=== PATIENT | male | born 1995 | race Caucasian/White ===

== ENCOUNTER 2017-11-15 11:11 | Observation (INO) ==
[2017-11-15] MEDS ORDERED: Lidocaine PF 1% Inj 30 ML Vial INFILTRATN ONE (11:41)
[2017-11-15] MEDS ORDERED: Lidocaine 1% Inj 50 ML Vial ONE (11:46)
--- NOTE | 2017-11-15 11:55 | ED ---
HPI General Chief Complaint: Dizziness Stated Complaint: Dizzy/elevated bp Source: patient Mode of arrival: ambulatory Limitations: no limitations History of Present Illness HPI Narrative: 22-year-old male complains of dizziness and elevated blood pressure. Patient started having intermittent dizziness for the past 2 weeks. Patient states that dizziness is worse with head movement. Patient denies any headache. Patient denies any visual change. Patient denies any chest pain or shortness of breath. Patient denies abdominal pain. Patient denies any nausea vomiting diarrhea. Patient denies any alcohol or drug abuse. Patient was seen in emergency room in [place] yesterday. Patient was given prescription for metoprolol 25 mg. Patient was given the first dose yesterday. Patient has not taking metoprolol at home since then. Patient states that his systolic blood pressure was running in the 140s 150s at home. Patient states that he had blood test done in the emergency room yesterday and was normal. Patient states that he had a near syncopal episode this morning from the dizziness. Patient called EMS. Patient was advised to go to ED for evaluation. Patient also complained of pain swelling redness on the left hand for the past 4 days. Patient states that he has a small piece of wood splinter embedded in the left hand 4 days ago. Patient states he is up-to-date with TD booster. Patient was seen in emergency room 2 weeks ago and again last night for atypical chest pain. Cardiac workup was normal. complaint: dizziness and near syncope Onset (ago): day(s) Timing: sudden onset and intermittent Description: sense of movement, lightheadedness, off-balance and near-syncope History of similar episodes: No History of trauma: No Severity: moderate Relieving factors: nothing Exacerbating factors: movement Associated symptoms: denies other symptoms Related Data Home Medications Medication Instructions Recorded Confirmed metoprolol tartrate 25 mg PO BID 11/15/17 11/15/17 Allergies Allergy/AdvReac Type Severity Reaction Status Date / Time No Known Allergies Allergy Verified 11/15/17 11:19 Review of Systems ROS: all other systems reviewed are negative [facility] Medical History Medical History Palpitations (Acute) Surgical History Surgical History No history of previous surgery (Acute) Social History Social History Substance History: Past History Second Hand Smoke Exposure: No Smoking Status: Heavy tobacco smoker Tobacco Type: Cigarettes How Often Do You Have a Drink Containing Alcohol: Monthly or less Recent Travel in [facility] within the Last 8 Weeks: No Recent Out of Country Travel within the Last 8 Weeks: No Substance Abuse Detail Marijuana: Substance Use Status: Early Remission Route Used Substance Abuse: Inhalation Last Used: 3 WEEKS Reason for Use: Get High Immunization History Tetanus Immunization: <5 Years Hx Influenza Vaccine This Season: No Exam Narrative Exam Narrative: GENERAL: Well-nourished, well-developed patient. SKIN: Focused skin assessment warm/dry. HEAD: Normocephalic. EYES: No scleral icterus. No injection or drainage. NECK: Supple, trachea midline. No JVD or lymphadenopathy. CARDIOVASCULAR: Regular rate and rhythm without murmurs, gallops, or rubs. RESPIRATORY: Breath sounds equal bilaterally. No accessory muscle use. GASTROINTESTINAL: Abdomen soft, non-tender, nondistended. MUSCULOSKELETAL: Patient has an area of soft tissue swelling tenderness with mild redness and hypothenar area medial aspect of the left hand. Small puncture wound noted. No discharge noted. No induration. BACK: Nontender without obvious deformity. No CVA tenderness. Neurologic exam: Patient is awake alert oriented x3. No obvious focal neurological deficit. Procedures Foreign Body Removal Foreign Body Removal Site: right and hand Description of Foreign Body: other (small incision made to right volar hand hypothenar eminence to attempt removal of splinter - none seen.) Sedation/Analgesia: other (lidocaine 1) Technique: incision made to facilitate removal Complications: none Course Initial Documented Vital Signs Temperature 97.4 F L 11/15/17 11:15 Pulse Rate 67 11/15/17 11:15 Respiratory Rate 16 11/15/17 11:15 Blood Pressure 131/78 11/15/17 11:15 Pulse Oximetry 100 11/15/17 11:15 Last Documented Vital Signs Temperature 97.4 F L 11/15/17 11:15 Pulse Rate 78 11/15/17 11:35 Respiratory Rate 16 11/15/17 11:35 Blood Pressure 132/72 11/15/17 11:35 Pulse Oximetry 99 11/15/17 11:35 Medical Decision Making MDM Narrative Medical decision making narrative: 22-year-old male complains of dizziness with head movement and pain and swelling of the left hand after a piece of wood splinter embedded in the left hand. Meclizine 25 mg p.o. given. Vancomycin 1 g IV given. The wound on the left hand was explored and irrigated. Dressing applied. 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 Advised observation and mechanical system technician. Medical Screen Exam Complete: Yes Emergency Medical Condition: Yes Differential Diagnosis Differential Diagnosis: Differential diagnosis including acute vertigo, electrolyte abnormality, dehydration, TIA, CVA, left hand cellulitis, abscess, retained foreign body. Lab Data Lab results reviewed: Yes I reviewed the patient's lab results. Result diagrams: 11/15/17 12:30 11/15/17 12:30 Lab Results 11/15/17 11/15/17 11/15/17 Range/Units 12:15 12:30 12:30 CBC w Diff Auto diff final WBC 7.7 (4.0-11.0) th/mm3 RBC 5.22 (4.50-5.90) mil/mm3 Hgb 16.4 (13.0-17.0) gm/dL Hct 48.7 (39.0-51.0) % MCV 93.3 (80.0-100.0) fL MCH 31.5 (27.0-34.0) pg MCHC 33.7 (32.0-36.0) % RDW 11.9 (11.6-17.2) % Plt Count 208 (150-450) th/mm3 MPV 7.9 (7.0-11.0) fL Neut % (Auto) 60.9 (16.0-70.0) % Lymph % (Auto) 24.0 (9.0-44.0) % [place] % (Auto) 8.1 H (0.0-8.0) % Eos % (Auto) 6.3 H (0.0-4.0) % Baso % (Auto) 0.7 (0.0-2.0) % Neut # (Auto) 4.7 (1.8-7.7) th/mm3 Lymph # (Auto) 1.8 (1.0-4.8) th/mm3 [place] # (Auto) 0.6 (0.0-0.9) th/mm3 Eos # (Auto) 0.5 H (0.0-0.4) th/mm3 Baso # (Auto) 0.1 (0.0-0.2) th/mm3 WBC Differential . Differential Comment . PT 10.2 (9.8-11.6) sec INR 1.0 Ratio Sodium (136-145) meq/L Potassium (3.5-5.1) meq/L Chloride (98-107) meq/L Carbon Dioxide (21.0-32.0) meq/L Anion Gap (5-15) meq/L BUN (7-18) mg/dL Creatinine (0.60-1.30) mg/dL Estimated GFR (>89) mL/min Random Glucose (74-106) mg/dL Calcium (8.5-10.1) mg/dL Total Bilirubin (0.2-1.0) mg/dL AST (15-37) U/L ALT (12-78) U/L Alkaline Phosphatase (45-117) U/L Troponin I (0.02-0.05) ng/mL Total Protein (6.4-8.2) g/dL Albumin (3.4-5.0) g/dL Urine Opiates Screen Neg (Neg) Ur Barbiturates Screen Neg (Neg) Ur Amphetamines Screen Pos H (Neg) U Benzodiazepines Scrn Neg (Neg) Urine Cocaine Screen Neg (Neg) U Cannabinoids Screen Neg (Neg) 11/15/17 Range/Units 12:30 CBC w Diff WBC (4.0-11.0) th/mm3 RBC (4.50-5.90) mil/mm3 Hgb (13.0-17.0) gm/dL Hct (39.0-51.0) % MCV (80.0-100.0) fL MCH (27.0-34.0) pg MCHC (32.0-36.0) % RDW (11.6-17.2) % Plt Count (150-450) th/mm3 MPV (7.0-11.0) fL Neut % (Auto) (16.0-70.0) % Lymph % (Auto) (9.0-44.0) % [place] % (Auto) (0.0-8.0) % Eos % (Auto) (0.0-4.0) % Baso % (Auto) (0.0-2.0) % Neut # (Auto) (1.8-7.7) th/mm3 Lymph # (Auto) (1.0-4.8) th/mm3 [place] # (Auto) (0.0-0.9) th/mm3 Eos # (Auto) (0.0-0.4) th/mm3 Baso # (Auto) (0.0-0.2) th/mm3 WBC Differential Differential Comment PT (9.8-11.6) sec INR Ratio Sodium 140 (136-145) meq/L Potassium 4.6 (3.5-5.1) meq/L Chloride 107 (98-107) meq/L Carbon Dioxide 26.7 (21.0-32.0) meq/L Anion Gap 6 (5-15) meq/L BUN 10 (7-18) mg/dL Creatinine 1.00 (0.60-1.30) mg/dL Estimated GFR Greater than 89 (>89) mL/min Random Glucose 87 (74-106) mg/dL Calcium 9.4 (8.5-10.1) mg/dL Total Bilirubin 1.1 H (0.2-1.0) mg/dL AST 20 (15-37) U/L ALT 25 (12-78) U/L Alkaline Phosphatase 72 (45-117) U/L Troponin I Less than 0.02 L (0.02-0.05) ng/mL Total Protein 7.1 (6.4-8.2) g/dL Albumin 4.3 (3.4-5.0) g/dL Urine Opiates Screen (Neg) Ur Barbiturates Screen (Neg) Ur Amphetamines Screen (Neg) U Benzodiazepines Scrn (Neg) Urine Cocaine Screen (Neg) U Cannabinoids Screen (Neg) Imaging Data Attestation: I personally reviewed and interpreted this imaging study as follows : Radiologist's impression: Head CT 11/15/17 11:43 CONCLUSION: 1. Negative CT Head non contrast. . Chest X-Ray 11/15/17 12:07 CONCLUSION: Negative examination. Discharge Plan Discharge Disposition Patient Disposition: 30 Still Patient Discharge Details Diagnosis: Symptomatic bradycardia, Cellulitis of hand, left Physicians Team ED Provider: Lenin Reddy Primary Care Provider: UNKNOWN, Rxs /Orders / Referrals /Forms Prescriptions: No Action metoprolol tartrate 25 mg Tablet 25 mg PO BID RF: 0 Discharge Interventions Interventions: Vital Signs Last Done: 11/15/17 11:35 Status ED Status: With Nurse
--- NOTE | 2017-11-15 12:18 | CT ---
EXAM DATE: 11/15/2017 12:16 PM EDT AGE/SEX: 22 years / Male INDICATIONS: Dizziness. CLINICAL DATA: This is the patient's initial encounter. Patient reports that signs and symptoms have been present for 1 day and indicates a pain score of 0/10. MEDICAL/SURGICAL HISTORY: None. None. RADIATION DOSE: 55.27 CTDI (mGy) COMPARISON: No prior exams available for comparison. TECHNIQUE: CT of the head without contrast. Using automated exposure control and adjustment of the mA and/or kV according to patient size, radiation dose was kept as low as reasonably achievable to ob tain optimal diagnostic quality images. DICOM format image data is available electronically for revi ew and comparison. FINDINGS: Cerebrum: The ventricles are normal for age. No evidence of midline shift, mass lesion, hemorrhage or acute infarction. No extraaxial fluid collections are seen. Posterior Fossa: The cerebellum and brainstem are intact. The 4th ventricle is midline. The cerebe llopontine angle is unremarkable. Extracranial: The visualized portion of the orbits is intact. Skull: The calvaria is intact. No evidence of skull fracture. CONCLUSION: 1. Negative CT Head non contrast. . Electronically signed by: Leonard Li MD 11/15/2017 12:17 PM EDT
[2017-11-15] MEDS: Sod Chloride 0.9% Inj 1,000 ML IV.CONT SCH ×2 (12:37→22:15)
[2017-11-15 12:46] LABS: Baso # (Auto) 0.1 th/mm3 (0.0-0.2); Baso % (Auto) 0.7 % (0.0-2.0); Eos # (Auto) 0.5 th/mm3 (0.0-0.4); Eos % (Auto) 6.3 % (0.0-4.0); Hematocrit 48.7 % (39.0-51.0); Hemoglobin 16.4 gm/dL (13.0-17.0); Lymph # (Auto) 1.8 th/mm3 (1.0-4.8); Mean Corpuscular HGB Conc 33.7 % (32.0-36.0); Mean Corpuscular Hemoglobin 31.5 pg (27.0-34.0); Mean Corpuscular Volume 93.3 fL (80.0-100.0); Mean Platelet Volume 7.9 fL (7.0-11.0); Mono # (Auto) 0.6 th/mm3 (0.0-0.9); Mono % (Auto) 8.1 % (0.0-8.0); Neut # (Auto) 4.7 th/mm3 (1.8-7.7); Neut % (Auto) 60.9 % (16.0-70.0); Platelet Count 208 th/mm3 (150-450); Red Blood Count 5.22 mil/mm3 (4.50-5.90); Red Cell Distribution Width 11.9 % (11.6-17.2); White Blood Count 7.7 th/mm3 (4.0-11.0)
--- NOTE | 2017-11-15 12:47 | XR ---
EXAM DATE: 11/15/2017 12:36 PM EDT AGE/SEX: 22 years / Male INDICATIONS: Dizzy, palpitations, chest pains CLINICAL DATA: This is the patient's initial encounter. Patient reports that signs and symptoms have been present for 3 weeks and indicates a pain score of 5/10. MEDICAL/SURGICAL HISTORY: None. None. COMPARISON: HPO, CHEST 1V SINGLE AP, 11/14/2017. . FINDINGS: A single AP view of the chest demonstrates the lungs to be symmetrically aerated without evidence of mass, infiltrate or effusion. The cardiomediastinal contours are unremarkable. Osseous structures a re intact. CONCLUSION: Negative examination. Electronically signed by: Leonard Li MD 11/15/2017 12:46 PM EDT
[2017-11-15 12:58] LABS: Chloride 107 meq/L (98-107); Potassium 4.6 meq/L (3.5-5.1); Sodium 140 meq/L (136-145)
[2017-11-15 13:01] LABS: Albumin 4.3 g/dL (3.4-5.0); Anion Gap 6 meq/L (5-15); Calcium 9.4 mg/dL (8.5-10.1); Carbon Dioxide 26.7 meq/L (21.0-32.0); Glucose,Random 87 mg/dL (74-106)
[2017-11-15 13:02] LABS: Blood Urea Nitrogen 10 mg/dL (7-18)
[2017-11-15 13:02] LABS: Amphetamine Screen,Urine Pos (Neg)
[2017-11-15] MEDS ORDERED: Vancomycin Inj 1 GM/200 ML PIGGYBACK IV.SIG ONE (13:02)
[2017-11-15 13:03] LABS: Prothrombin Time 10.2 sec (9.8-11.6)
[2017-11-15 13:03] LABS: Barbiturate Screen,Urine Neg (Neg)
[2017-11-15 13:04] LABS: Alanine Aminotransferase 25 U/L (12-78)
[2017-11-15 13:05] LABS: Aspartate Aminotransferase 20 U/L (15-37); Glomerular Filtration Rate Greater Than 89 mL/min (>89)
[2017-11-15 13:06] LABS: Cannabinoid Screen,Urine Neg (Neg)
[2017-11-15 13:06] LABS: Total Protein 7.1 g/dL (6.4-8.2)
[2017-11-15 13:07] LABS: Alkaline Phosphatase 72 U/L (45-117)
[2017-11-15 13:08] LABS: Cocaine Screen,Urine Neg (Neg)
[2017-11-15 13:20] LABS: Opiate Screen,Urine Neg (Neg)
[2017-11-15] MEDS ORDERED: Ketorolac Inj 30 MG/ML (IVP) Vial IV.PUSH ONE ×2 (13:55→22:03)
[2017-11-15] MEDS ORDERED: Vancomycin Inj 1,000 MG in Sodium Chlor 0.9% Inj 250 ML IV.SIG ONE (14:00)
--- NOTE | 2017-11-15 15:03 | P.HP ---
History of Present Illness Primary Care Physician: UNKNOWN Chief Complaint: Lightheadedness and dizziness History of Present Illness: 22-year-old male with no chronic medical illnesses who presented to the hospital for evaluation of lightheadedness and dizziness. Patient states that for the last 3 weeks he has been experiencing multiple symptoms to include chest pain, palpitations, tachycardia, dizziness. He has been to the emergency department multiple times in the most recent time was yesterday. During that visit he came in for evaluation of chest pain, during that admission he had workup done and had normal troponin, he tested positive for amphetamines and cannabinoids. Patient was given Toradol with improvement of his chest discomfort, ibuprofen upon discharge. Patient was diagnosed with atypical chest pain, amphetamine adverse reaction. This morning the patient states that he got up out of bed and had significant lightheadedness and dizziness. It started after he felt palpitations. He thought his heart was racing again. He took his blood pressure and it was mildly elevated, however his heart rate was normal. The patient called the paramedics who evaluated him and offered to bring him to the hospital. However the patient declined at that time. Patient decided to drive to work and he still had significant dizziness so he drove himself to the emergency department for evaluation. Upon presentation patient had EKG done which showed heart rate of [address]ations. Which upon review of medical records. The patient has similar findings dating back to 2016. Because the patient's presenting symptoms of lightheadedness, dizziness, bradycardia the ER physician contacted cardiology on-call who recommended the patient be observed in the hospital. Upon seeing the patient today in room 8308 upon entering the room he states that he was experiencing chest discomfort in the middle part of his chest with associated nausea, lightheadedness, shortness of breath, dyspnea, lightheadedness. - Diagnosis (1) Atypical chest pain (2) Symptomatic bradycardia (3) Dizziness Review of Systems All other systems reviewed negative except as stated in HPI Constitutional: Reports excessive sweating Cardiovascular: Reports chest pain, Reports shortness of breath Gastrointestinal: Reports nausea Neurologic: Reports dizziness PMFSH - History History Provided By: Patient - Medical History Medical History: Medical History (Last Updated 11/15/17 @ 15:03 by FAMILIA Paulino) Substance abuse - Surgical History Surgical History: Surgical History (Last Reviewed 11/15/17 @ 11:51 by Lenin Reddy MD) No history of previous surgery - Family History Family History: Family History (Last Updated 11/15/17 @ 15:02 by FAMILIA Paulino) Grandparent History of myocardial infarction - Tobacco History Second Hand Smoke Exposure: No Tobacco Use In Past 30 Days: Yes Smoking Status: Heavy tobacco smoker Tobacco Type: Cigarettes Packs Per Day: 1 Years Smoked: 5 - Alcohol History How Often Do You Have a Drink Containing Alcohol: Monthly or less - Substance Use History Substance History: Active Abuse - Substance Use Type Marijuana Route Used: Inhalation Last Used: 2 days Reason for Use: Get High - Travel History Recent Travel in the [place] Within the Last 8 Weeks: No Recent Travel Out of the Country Within the Last 8 Weeks: No - Immunization History Tetanus Immunization: <5 Years Hx Influenza Vaccine This Season: No Medications and Allergies Active Medications: Active Medications Sodium Chloride (Ns Inj) 1,000 mls @ 100 mls/hr IV.CONT .Q10H SILVERIO Last Admin: 11/15/17 12:37 Dose: 100 mls/hr Allergies Allergy/AdvReac Type Severity Reaction Status Date / Time No Known Allergies Allergy Verified 11/15/17 11:19 Home Medications Medication Instructions Recorded Confirmed Type metoprolol tartrate 25 mg PO BID 11/15/17 11/15/17 History Exam Vital signs: Vital Signs 11/15/17 11:15 11/15/17 11:25 11/15/17 11:35 Temperature 97.4 F L Pulse Rate 67 68 78 Respiratory Rate 16 16 Blood Pressure 131/78 132/72 Pulse Oximetry 100 100 99 11/15/17 13:45 Temperature Pulse Rate 45 L Respiratory Rate 18 Blood Pressure 144/74 H Pulse Oximetry 99 Intake & Output 11/14/17 11/15/17 11/15/17 18:59 06:59 18:59 Weight 68.4 kg Narrative: GENERAL: Well-developed, well-nourished, in no acute distress. alert and orientated HEENT: Head is normocephalic without any lesions or masses noted. Facial features are symmetric. Eyes: Pupils equal round reactive to light. Extraocular muscles are intact. Conjunctivae were clear. Oropharyngeal: Pharynx without any erythema edema. Tongue is midline without deviation. Buccal mucosa is moist without any masses or lesions NECK: Supple without any masses. Trachea midline no deviation. No JVD, no bruits are appreciated CARDIAC: Regular rhythm, regular rate. S1/S2 are heard. No murmurs gallops or rubs. LUNGS: Clear to auscultation bilaterally. No wheeze, rhonchi or rales. No use of accessory muscles on inspiration or expiration. ABDOMEN: Soft, nontender. Nondistended. Bowel sounds heard in all 4 quadrants. No organomegaly or masses. Negative rebound, negative guarding EXTREMITIES: No edema, pulses are equal bilaterally. No cyanosis or clubbing NEUROLOGY: Mood and affect appear appropriate. Cranial nerves II through XII grossly intact. Muscle strength 5/5 in upper and lower extremities bilaterally. Deep tendon reflexes are 2+ in upper and lower extremities bilaterally. Results - Labs CBC & Chem 7: 11/15/17 12:30 11/15/17 12:30 Labs: Laboratory Results - last 24 hr 11/15/17 11/15/17 11/15/17 12:15 12:30 12:30 CBC w Diff Auto diff final WBC 7.7 RBC 5.22 Hgb 16.4 Hct 48.7 MCV 93.3 MCH 31.5 MCHC 33.7 RDW 11.9 Plt Count 208 MPV 7.9 Neut % (Auto) 60.9 Lymph % (Auto) 24.0 [place] % (Auto) 8.1 H Eos % (Auto) 6.3 H Baso % (Auto) 0.7 Neut # (Auto) 4.7 Lymph # (Auto) 1.8 [place] # (Auto) 0.6 Eos # (Auto) 0.5 H Baso # (Auto) 0.1 WBC Differential . Differential Comment . PT 10.2 INR 1.0 Sodium Potassium Chloride Carbon Dioxide Anion Gap BUN Creatinine Estimated GFR Random Glucose Calcium Total Bilirubin AST ALT Alkaline Phosphatase Troponin I Total Protein Albumin TSH Urine Opiates Screen Neg Ur Barbiturates Screen Neg Ur Amphetamines Screen Pos H U Benzodiazepines Scrn Neg Urine Cocaine Screen Neg U Cannabinoids Screen Neg 11/15/17 11/15/17 12:30 12:30 CBC w Diff WBC RBC Hgb Hct MCV MCH MCHC RDW Plt Count MPV Neut % (Auto) Lymph % (Auto) [place] % (Auto) Eos % (Auto) Baso % (Auto) Neut # (Auto) Lymph # (Auto) [place] # (Auto) Eos # (Auto) Baso # (Auto) WBC Differential Differential Comment PT INR Sodium 140 Potassium 4.6 Chloride 107 Carbon Dioxide 26.7 Anion Gap 6 BUN 10 Creatinine 1.00 Estimated GFR Greater than 89 Random Glucose 87 Calcium 9.4 Total Bilirubin 1.1 H AST 20 ALT 25 Alkaline Phosphatase 72 Troponin I Less than 0.02 L Total Protein 7.1 Albumin 4.3 TSH 1.700 Urine Opiates Screen Ur Barbiturates Screen Ur Amphetamines Screen U Benzodiazepines Scrn Urine Cocaine Screen U Cannabinoids Screen - Imaging Impressions Head CT 11/15/17 11:43 CONCLUSION: 1. Negative CT Head non contrast. . Chest X-Ray 11/15/17 12:07 CONCLUSION: Negative examination. Caprini VTE Risk Assessment Caprini VTE Risk Assessment: No/Low Risk (score <= 1) Caprini Risk Assessment Model: Point Value = 1 Point Value = 2 Point Value = 3 Point Value = 5 Age 41-60 Minor surgery BMI > 25 kg/m2 Swollen legs Varicose veins or History of unexplained or recurrent spontaneous Oral contraceptives or hormone replacement Sepsis (< 1 month) Serious lung disease, including pneumonia (< 1 month) Abnormal pulmonary function Acute myocardial infarction Congestive heart failure (< 1 month) History of inflammatory bowel disease Medical patient at bed rest Age 61-74 Arthroscopic surgery Major open surgery (> 45 min) Laparoscopic surgery (> 45 min) Malignancy Confined to bed (> 72 hours) Immobilizing plaster cast Central venous access Age >= 75 History of VTE Family history of VTE Factor V Leiden Prothrombin [id number] Lupus anticoagulant Anticardiolipin antibodies Elevated serum homocysteine Heparin-induced thrombocytopenia Other congenital or acquired thrombophilia Stroke (< 1 month) Elective arthroplasty Hip, pelvis, or leg fracture Acute spinal cord injury (< 1 month) Prophylaxis Regimen: Total Risk Factor Score Risk Level Prophylaxis Regimen 0-1 Low Early ambulation 2 Moderate Order ONE of the following: *Sequential Compression Device (SCD) *Heparin 5000 units SQ BID 3-4 Higher Order ONE of the following medications: *Heparin 5000 units SQ TID *Enoxaparin/Lovenox 40 mg SQ daily (WT < 150 kg, CrCl > 30 mL/min) *Enoxaparin/Lovenox 30 mg SQ daily (WT < 150 kg, CrCl > 10-29 mL/min) *Enoxaparin/Lovenox 30 mg SQ BID (WT < 150 kg, CrCl > 30 mL/min) AND/OR *Sequential Compression Device (SCD) 5 or more Highest Order ONE of the following medications: *Heparin 5000 units SQ TID (Preferred with Epidurals) *Enoxaparin/Lovenox 40 mg SQ daily (WT < 150 kg, CrCl > 30 mL/min) *Enoxaparin/Lovenox 30 mg SQ daily (WT < 150 kg, CrCl > 10-29 mL/min) *Enoxaparin/Lovenox 30 mg SQ BID (WT < 150 kg, CrCl > 30 mL/min) AND *Sequential Compression Device (SCD) Assessment and Plan - Assessment (1) Atypical chest pain Code(s): R07.89 - Other chest pain Status: Acute (2) Symptomatic bradycardia Code(s): R00.1 - Bradycardia, unspecified Status: Acute (3) Dizziness Code(s): R42 - Dizziness and giddiness Status: Acute - Plan Chest pain, possible pericarditis -Patient chest pain appears to be atypical. Located midsternal area associated with palpitations, lightheadedness, dizziness, shortness of breath, diaphoresis , nausea -Patient with minimal risk factors to include tobacco use, family history of heart disease. -Due to the patient come to the hospital multiple times in 2 days, his troponin level have remained normal -EKG shows sinus rhythm with heart rate of 51, patient does have diffuse ST elevations, when compared with previous EKGs dating back to 2016 and these appear to be similar -We will start indomethacin 50 mg every 8 hours Symptomatic bradycardia -EKG did indicate heart rate of 51. Patient now with heart rate of 45 -ER physician did consult with cardiology on-call who recommended observation the hospital. Return physician has consulted cardiology for further recommendations -Continue monitor telemetry Polysubstance abuse -Patient has tested positive for both marijuana and amphetamines -Patient does admit to marijuana use, however denies any amphetamine use -Patient's presenting symptoms could be related to adverse amphetamine symptoms DVT prevention -Low risk, early ambulation
[2017-11-15] MEDS ORDERED: Acetaminophen 325 MG Tablet PO PRN (15:28)
[2017-11-15] MEDS ORDERED: Docusate Sodium 100 MG Capsule PO PRN (15:28)
[2017-11-15] MEDS ORDERED: Indomethacin 25 MG Capsule PO SCH ×2 (15:30→22:00)
[2017-11-15 19:03] LABS: Creatine Kinase 88 U/L (39-308)
--- NOTE | 2017-11-15 20:08 | MB ---
cc: Lenny Marquis DO DATE: 11/15/2017 REASON FOR CONSULTATION: Palpitations, dizziness. HISTORY OF PRESENT ILLNESS: Valdemar Beck is a 22-year-old male who presents to [facility] emergency room due to lightheadedness and dizziness. Apparently over the past few weeks, he has had multiple episodes of lightheadedness and dizziness and he feels tachycardic. He has also had some chest pain. He has been to the emergency room here multiple times as well as in [facility]. During his previous ER visit, he was positive for amphetamines and cannabis, and states that he does smoke marijuana, but uses no amphetamines. Apparently, he was given Toradol previously with improvement of his chest discomfort. This morning, he got up out of bed and just felt lightheaded and dizzy. He also said that he felt some palpitations and thought that his heart was racing, so the patient called the paramedics who evaluated him and offered to bring him to the hospital. He declined at that time and decided to drive to work and, as he had significant dizziness, he decided to drive himself to the emergency department for evaluation. As he has been in the emergency room, both here and in [facility] around 5-6 times within the past few weeks, I asked that he be placed in observation in the hospital, so he can be evaluated on telemetry. PAST MEDICAL HISTORY: 1. Marijuana use. 2. Questionable amphetamine use for which the patient does not admit to. 3. Tobacco abuse. PAST SURGICAL HISTORY: Denies. ALLERGIES: NO KNOWN DRUG ALLERGIES. MEDICATIONS: No chronic medications. During an ER visit in [place], he was given metoprolol tartrate, but had not really started that. FAMILY HISTORY: Denies sudden cardiac within the family. SOCIAL HISTORY: The patient smokes a pack a day for around 5 years. He rarely uses alcohol. He admits to smoking marijuana, but does not admit to amphetamine use. REVIEW OF SYSTEMS: Fourteen systems were reviewed including osteopathic. Pertinent positives and negatives above, otherwise negative. PHYSICAL EXAMINATION: VITAL SIGNS: Temperature 97.3, heart rate 63, blood pressure 116/64, respirations 18, pulse oximetry 98% on room air. GENERAL: The patient appears well, in no acute distress, alert, awake and oriented x3. HEENT: Extraocular muscles intact. Mucous membranes moist. NECK: Supple. No JVD at 45 degrees. No carotid bruits heard bilaterally. Carotid upstroke is brisk in nature. HEART: Regular rate and rhythm. Positive first and second heart sounds were noted. No murmurs, gallops or rubs. LUNGS: Clear to auscultation bilaterally. No wheezes, rales or rhonchi. ABDOMEN: Soft, nontender, nondistended. No organomegaly noted. EXTREMITIES: Show no clubbing, cyanosis or edema. Femoral and distal pulses are intact bilaterally. NEUROLOGIC: No focal deficits. SKIN: Warm, dry and intact. OSTEOPATHIC: No kyphoscoliosis, lordosis or paraspinal tender points. LABORATORY DATA: Hemoglobin 16.4, hematocrit 48.7, platelets 208. Potassium 4.6, BUN 10, creatinine 1.0. Troponin less than 0.02. Electrocardiogram (11/15/2017 at 12:32): Sinus bradycardia, multiple diffuse ST elevations consistent with early repolarization; no change since his first EKG done here in 02/2016. IMPRESSION: 1. Atypical chest pain. 2. Lightheadedness of unknown cause. 3. Possible symptomatic bradycardia. 4. Polysubstance abuse positive for marijuana and amphetamines. 5. EKG showing early repolarization. 6. Tobacco abuse. RECOMMENDATIONS: 1. Mr. Beck presented with a litany of symptoms and ultimately he should be watched on telemetry to see if there are any arrhythmias. 2. As far as symptomatic bradycardia goes, he is a young man and should ultimately be able to handle a heart rate of 40 without problems. 3. I spoke to him for greater than 3 minutes about tobacco cessation. 4. My major concern is that he comes in positive for amphetamines and may have had his marijuana laced leading to amphetamine use. This ultimately could cause tachycardia, arrhythmias and an overall chest pains. 5. Ultimately, will check a 2-D echo and if negative, as well as no arrhythmias on telemetry, I would consider sending him home, encouraging fluids, tobacco cessation, and attempting to stop marijuana, especially if it is laced with another medication. Thank you for allowing me to see Valdemar Beck. If there are any questions, please do not hesitate to call. DO LUIS A Bryant/pool , 05:51 PM , 06:02 PM
[2017-11-16 01:05] LABS: Creatine Kinase 94 U/L (39-308)
[2017-11-16] MEDS ORDERED: Ketorolac Inj 30 MG/ML (IVP) Vial IV.PUSH ONE (05:10)
[2017-11-16] MEDS: Sod Chloride 0.9% Inj 1,000 ML IV.CONT SCH (09:59)
[2017-11-16 10:06] VITALS: RESP 18; O2SAT 100
--- NOTE | 2017-11-16 10:42 | P.PN ---
Subjective Interval history: 22-year-old male who is seen in follow-up today for lightheadedness, dizziness, bradycardia. Patient states that he is feeling much better today and is very eager to go home. Vital signs appear to be stable. Patient still having bradycardia through the night while he is sleeping down to 39. Patient is afebrile Physical Exam Vital signs: Vital Signs 11/15/17 11:15 11/15/17 11:25 11/15/17 11:35 Temperature 97.4 F L Pulse Rate 67 68 78 Respiratory Rate 16 16 Blood Pressure 131/78 132/72 Pulse Oximetry 100 100 99 11/15/17 13:45 11/15/17 17:15 11/15/17 20:00 Temperature 97.3 F L 98.8 F Pulse Rate 45 L 63 50 L Respiratory Rate 18 18 16 Blood Pressure 144/74 H 116/64 112/61 Pulse Oximetry 99 98 99 11/16/17 00:00 11/16/17 04:00 11/16/17 08:00 Temperature 98.5 F 98.3 F 97.4 F L Pulse Rate 40 L 40 L 50 L Respiratory Rate 16 16 18 Blood Pressure 107/60 101/53 L 122/63 Pulse Oximetry 99 99 100 Intake & Output 11/15/17 11/16/17 11/16/17 18:59 06:59 18:59 Intake Total 670 / 670 1000 / 1000 1000 / 1000 Balance 670 / 670 1000 / 1000 1000 / 1000 Weight 68.4 kg 68.4 kg Intake: IV 250 / 250 1000 / 1000 1000 / 1000 NS Inj 1,000 ML @ 100 mls/hr IV 1000 / 1000 1000 / 1000 .CONT .Q10H SILVERIO Rx#:[id number] Vancomycin Inj 1,000 MG In NS 250 / 250 Inj 250 ML @ 250 mls/hr IV.SIG ONCE ONE Rx#:[id number] Oral 420 / 420 Other: # Voids 1 # Bowel Movements 0 Narrative: GENERAL: Well-developed, well-nourished, in no acute distress. alert and orientated HEENT: Head is normocephalic without any lesions or masses noted. Facial features are symmetric. Eyes: Extraocular muscles are intact. Conjunctivae were clear. NECK: Supple without any masses. Trachea midline no deviation. No JVD, CARDIAC: Regular rhythm, regular rate. S1/S2 are heard. No murmurs gallops or rubs. LUNGS: Clear to auscultation bilaterally. No wheeze, rhonchi or rales. No use of accessory muscles on inspiration or expiration. ABDOMEN: Soft, nontender. Nondistended. Bowel sounds heard in all 4 quadrants. No organomegaly or masses. Negative rebound, negative guarding EXTREMITIES: No edema, pulses are equal bilaterally. No cyanosis or clubbing NEUROLOGY: Mood and affect appear appropriate. Cranial nerves II through XII grossly intact. Moving all extremities, speech is clear Results - Labs CBC & Chem 7: 11/15/17 12:30 11/15/17 12:30 Laboratory Results - last 24 hr 11/15/17 11/15/17 11/15/17 12:15 12:30 12:30 CBC w Diff Auto diff final WBC 7.7 RBC 5.22 Hgb 16.4 Hct 48.7 MCV 93.3 MCH 31.5 MCHC 33.7 RDW 11.9 Plt Count 208 MPV 7.9 Neut % (Auto) 60.9 Lymph % (Auto) 24.0 [place] % (Auto) 8.1 H Eos % (Auto) 6.3 H Baso % (Auto) 0.7 Neut # (Auto) 4.7 Lymph # (Auto) 1.8 [place] # (Auto) 0.6 Eos # (Auto) 0.5 H Baso # (Auto) 0.1 WBC Differential . Differential Comment . ESR PT 10.2 INR 1.0 Sodium Potassium Chloride Carbon Dioxide Anion Gap BUN Creatinine Estimated GFR Random Glucose Calcium Total Bilirubin AST ALT Alkaline Phosphatase Total Creatine Kinase Troponin I C-Reactive Protein Total Protein Albumin TSH Urine Opiates Screen Neg Ur Barbiturates Screen Neg Ur Amphetamines Screen Pos H U Benzodiazepines Scrn Neg Urine Cocaine Screen Neg U Cannabinoids Screen Neg 11/15/17 11/15/17 11/15/17 12:30 12:30 12:30 CBC w Diff WBC RBC Hgb Hct MCV MCH MCHC RDW Plt Count MPV Neut % (Auto) Lymph % (Auto) [place] % (Auto) Eos % (Auto) Baso % (Auto) Neut # (Auto) Lymph # (Auto) [place] # (Auto) Eos # (Auto) Baso # (Auto) WBC Differential Differential Comment ESR 1 PT INR Sodium 140 Potassium 4.6 Chloride 107 Carbon Dioxide 26.7 Anion Gap 6 BUN 10 Creatinine 1.00 Estimated GFR Greater than 89 Random Glucose 87 Calcium 9.4 Total Bilirubin 1.1 H AST 20 ALT 25 Alkaline Phosphatase 72 Total Creatine Kinase Troponin I Less than 0.02 L C-Reactive Protein Total Protein 7.1 Albumin 4.3 TSH 1.700 Urine Opiates Screen Ur Barbiturates Screen Ur Amphetamines Screen U Benzodiazepines Scrn Urine Cocaine Screen U Cannabinoids Screen 11/15/17 11/15/17 11/16/17 12:30 18:34 00:20 CBC w Diff WBC RBC Hgb Hct MCV MCH MCHC RDW Plt Count MPV Neut % (Auto) Lymph % (Auto) [place] % (Auto) Eos % (Auto) Baso % (Auto) Neut # (Auto) Lymph # (Auto) [place] # (Auto) Eos # (Auto) Baso # (Auto) WBC Differential Differential Comment ESR PT INR Sodium Potassium Chloride Carbon Dioxide Anion Gap BUN Creatinine Estimated GFR Random Glucose Calcium Total Bilirubin AST ALT Alkaline Phosphatase Total Creatine Kinase 88 94 Troponin I Less than 0.02 L Less than 0.02 L C-Reactive Protein Less than 0.29 Total Protein Albumin TSH Urine Opiates Screen Ur Barbiturates Screen Ur Amphetamines Screen U Benzodiazepines Scrn Urine Cocaine Screen U Cannabinoids Screen - Imaging Impressions Head CT 11/15/17 11:43 CONCLUSION: 1. Negative CT Head non contrast. . Chest X-Ray 11/15/17 12:07 CONCLUSION: Negative examination. Assessment and Plan - Assessment (1) Atypical chest pain Code(s): R07.89 - Other chest pain Status: Inactive (2) Symptomatic bradycardia Code(s): R00.1 - Bradycardia, unspecified Status: Acute (3) Dizziness Code(s): R42 - Dizziness and giddiness Status: Acute - Plan Chest pain, -Patient chest pain appears to be atypical. Located midsternal area associated with palpitations, lightheadedness, dizziness, shortness of breath, diaphoresis , nausea -Patient with minimal risk factors to include tobacco use, family history of heart disease. -Patient had troponin trend for over 2 days which have all remained negative -EKG shows sinus rhythm with heart rate of 51, patient does have diffuse ST elevations, when compared with previous EKGs dating back to 2016 and these appear to be similar -Cardiology consultation was performed to recommend an echocardiogram. Column Precaster indicated that if echocardiogram is normal the patient can be discharged home safely Symptomatic bradycardia -EKG did indicate heart rate of 51. -ER physician did consult with cardiology on-call who recommended observation the hospital. ER physician has consulted cardiology for further recommendations -Continue monitor telemetry -Column Precaster indicated this could be normal variant for someone of this young of age, Polysubstance abuse -Patient has tested positive for both marijuana and amphetamines -Patient does admit to marijuana use, however denies any amphetamine use -Patient's presenting symptoms could be related to adverse amphetamine symptoms DVT prevention -Low risk, early ambulation Discussed Condition With: Patient, nursing staff, Dr. Marquis Discharge Planning: Discharge home in stable condition Activity: Ad nancy. Diet: Regular diet Medication per medication reconciliation Follow-up with primary medical doctor in 1 week
--- NOTE | 2017-11-16 12:27 | ECHRPT ---
Indication: CHEST PAIN CONCLUSIONS Normal left ventricular size. Wall thickness is normal. The left ventricular systolic function is normal with an estimated ejection fraction in the range of 55-60%. The estimated pulmonary arterial pressure is 22mmHg. BP: / HR: Rhythm: Technical Quality: FINDINGS LEFT VENTRICLE Normal left ventricular size. Wall thickness is normal. The left ventricular systolic function is normal with an estimated ejection fraction in the range of 55-60%. RIGHT VENTRICLE Normal right ventricular size and systolic function. LEFT ATRIUM The left atrial size is normal. RIGHT ATRIUM The right atrial size is normal. ATRIAL SEPTUM Normal atrial septal thickness without atrial level shunting by limited color doppler interrogation. AORTA The aortic root and proximal ascending aorta are normal in size on limited imaging. MITRAL VALVE Structurally normal mitral valve. No mitral valve stenosis or regurgitation. AORTIC VALVE Trileaflet aortic valve. No aortic valve stenosis or regurgitation. TRICUSPID VALVE The estimated pulmonary arterial pressure is 22mmHg. PULMONARY VALVE The pulmonary valve is not well visualized. VESSELS The inferior vena cava is normal in size. PERICARDIUM No pericardial effusion. Jin Dumont MD, FACC, [facility] [place] (Electronically Signed) Final Date:16 November 2017 12:25
[2017-11-16 12:45] VITALS: BP 121/62; PULSE 52; TEMP 97.7
--- NOTE | 2017-11-16 13:01 | ECG ---
Date Performed: 11/15/2017 Time Performed: 12:32:41 PTAGE: 22 years EKG: SINUS BRADYCARDIA EARLY REPOLARIZATION BORDERLINE ECG Consider and exclude pericarditis. Co mpared to PREVIOUS TRACING , the sinus bradycardia is new. There has been an overall increase in th e inferolateral ST depression. PREVIOUS TRACIN11/14/2017 23.02 DOCTOR: Edilia Chavarria Interpretating Date/Time 11/16/2017 12:59:52
--- NOTE | 2017-11-16 13:01 | ECG ---
Date Performed: 11/15/2017 Time Performed: 18:31:14 PTAGE: 22 years EKG: Sinus rhythm WITH MARKED SINUS ARRHYTHMIA BORDERLINE ECG Early repolarization Compared to PREVIOUS TRACING , there has been no significant serial change. PREVIOUS TRACIN 018 12.32 DOCTOR: Edilia Chavarria Interpretating Date/Time 11/16/2017 13:00:34
--- NOTE | 2017-11-16 13:03 | ECG ---
Date Performed: 11/16/2017 Time Performed: 00:39:35 PTAGE: 22 years EKG: ECTOPIC ATRIAL RHYTHM WITH MARKED BRADYCARDIA ST ELEVATION, PROBABLY EARLY REPOLARIZATION B ORDERLINE ECG Compared to PREVIOUS TRACING , the ectopic atrial rhythm is new. The marked bradycardia is new. Clini essie correlation advised. PREVIOUS TRACIN11/15/2017 18.31 DOCTOR: Edilia Chavarria Interpretating Date/Time 11/16/2017 13:01:38
--- NOTE | 2017-11-16 13:03 | P.PNCA ---
Subjective Interval history: No events overnight Feels well Heart rates 40-60s overnight while sleeping Physical Exam Vital signs: Vital Signs 11/15/17 13:45 11/15/17 17:15 11/15/17 20:00 Temperature 97.3 F L 98.8 F Pulse Rate 45 L 63 50 L Respiratory Rate 18 18 16 Blood Pressure 144/74 H 116/64 112/61 Pulse Oximetry 99 98 99 11/16/17 00:00 11/16/17 04:00 11/16/17 08:00 Temperature 98.5 F 98.3 F 97.4 F L Pulse Rate 40 L 40 L 46 L Respiratory Rate 16 16 18 Blood Pressure 107/60 101/53 L 122/63 Pulse Oximetry 99 99 100 11/16/17 12:00 Temperature 97.7 F Pulse Rate 52 L Respiratory Rate 18 Blood Pressure 121/62 Pulse Oximetry 100 Intake & Output 11/15/17 11/16/17 11/16/17 18:59 06:59 18:59 Intake Total 670 / 670 1000 / 1000 1000 / 1000 Balance 670 / 670 1000 / 1000 1000 / 1000 Weight 68.4 kg 68.4 kg Intake: IV 250 / 250 1000 / 1000 1000 / 1000 NS Inj 1,000 ML @ 100 mls/hr IV 1000 / 1000 1000 / 1000 .CONT .Q10H SILVERIO Rx#:[id number] Vancomycin Inj 1,000 MG In NS 250 / 250 Inj 250 ML @ 250 mls/hr IV.SIG ONCE ONE Rx#:[id number] Oral 420 / 420 Other: # Voids 1 # Bowel Movements 0 Narrative: GENERAL: Well-developed, well-nourished, in no acute distress. alert and orientated HEENT: Head is normocephalic without any lesions or masses noted. Facial features are symmetric. Eyes: Extraocular muscles are intact. Conjunctivae were clear. NECK: Supple without any masses. Trachea midline no deviation. No JVD, CARDIAC: Regular rhythm, regular rate. S1/S2 are heard. No murmurs gallops or rubs. LUNGS: Clear to auscultation bilaterally. No wheeze, rhonchi or rales. No use of accessory muscles on inspiration or expiration. ABDOMEN: Soft, nontender. Nondistended. Bowel sounds heard in all 4 quadrants. No organomegaly or masses. Negative rebound, negative guarding EXTREMITIES: No edema, pulses are equal bilaterally. No cyanosis or clubbing NEUROLOGY: Mood and affect appear appropriate. Cranial nerves II through XII grossly intact. Moving all extremities, speech is clear Assessment and Plan - Assessment (1) Bradycardia Code(s): R00.1 - Bradycardia, unspecified Status: Acute (2) Amphetamine abuse Code(s): F15.10 - Other stimulant abuse, uncomplicated Status: Acute (3) Dizziness Code(s): R42 - Dizziness and giddiness Status: Acute - Plan 1) Bradycardia Asymptomatic Normal for a young male, no high grade AV blocks 2) Symptoms on arrival were mostly for palpitations Possible due to Amphetamine use, which he denies but possible in his marijuana? 3) Tobacco cessation 4) If echo normal, then cardiovascularly stable for discharge
== END 2017-11-16 14:03 | disposition home or self-care (01) ==
LOC: PHEDA 11:11 → PHED 11:11 → PH3 14:31
PROVIDERS: ADMIT Hospitalist; ATTEND Hospitalist
DX: L03.114 Cellulitis of left upper limb; F12.10 Cannabis abuse, uncomplicated; R00.2 Palpitations; R00.1 Bradycardia, unspecified; F15.10 Other stimulant abuse, uncomplicated; F17.210 Nicotine dependence, cigarettes, uncomplicated; R42 Dizziness and giddiness; Z82.49 Family history of ischemic heart disease and other diseases of the circulatory system; R07.89 Other chest pain; S60.552A Superficial foreign body of left hand, initial encounter